=== PATIENT | female | born 1960 | race African-American/Black ===

== ENCOUNTER 2019-03-14 23:12 | Observation (INO) | payer BC ==
[2019-03-15] MEDS ORDERED: Ondansetron ODT 4 MG TAB PO PRN (00:38)
[2019-03-15] MEDS ORDERED: Ondansetron PF 4 MG/2 ML Vial IVP PRN (00:38)
[2019-03-15] MEDS ORDERED: Morphine 2 MG/ML SYRINGE SLOW IVP PRN (01:34)
[2019-03-15] MEDS ORDERED: Morphine 4 MG/ML VIAL SLOW IVP PRN (01:35)
[2019-03-15] MEDS ORDERED: Acetaminophen 325 MG TAB PO PRN (01:35)
[2019-03-15] MEDS: Sodium Chloride 0.9% 1,000 ML IV SCH ×3 (01:44→17:57)
--- NOTE | 2019-03-15 02:07 | HP ---
PRIMARY CARE DOCTOR: Out of town physician. CODE STATUS: Full code. TIME OF EVALUATION: 12:40 a.m. CHIEF COMPLAINT: Abdominal pain. HISTORY OF PRESENT ILLNESS: This is a 58-year-old female patient transferred from [place] with past medical history of previous acute CT, status post stent placement x2, possible cervical cancer, hyperlipidemia, hypertension, came to the hospital after having abdominal pain that was [id number] with no clear triggers, no alleviating factors, located in the lower abdomen radiating to the back. She was also found to have mildly elevated troponin. For that reason was transferred to the hospital. REVIEW OF SYSTEMS: CONSTITUTIONAL: No fever, chills, or generalized weakness. RESPIRATORY: No cough, sputum production, or shortness of breath. CARDIOVASCULAR: The patient has no chest pain or palpitations. GASTROINTESTINAL: No nausea. No vomiting. The patient has abdominal pain mostly in the lower abdomen with radiation to the back. NEWSAGENT: No dizziness, headache or feeling lightheaded. GENITOURINARY: No burning on urination. EXTREMITIES: No leg swelling in the extremities. All other systems were reviewed and negative except for the findings mentioned above. PAST MEDICAL HISTORY: As mentioned in the HPI. PAST SURGICAL HISTORY: Tonsillectomy, tubal ligation. FAMILY HISTORY:Reviewed and non contributory to current presentation. PSYCHIATRIC HISTORY: No previous psych history. SOCIAL HISTORY: The patient has no drug use, quit smoking in 01/2019. KNOWN ALLERGIES: No known drug allergies reported. REPORTED MEDICATIONS: No reported medications. PHYSICAL EXAMINATION: VITAL SIGNS: On presentation, heart rate 72, respiratory rate 16. Pain 5/10. Oxygen saturation was 98% on room air. GENERAL APPEARANCE: The patient is alert, oriented, not in acute distress. HEENT: Eyes, normal. ENT: Moist oral mucosa. Anicteric. No JVD. RESPIRATORY: Bilateral air entry. No rales. No wheezes. Symmetric expansion. CARDIOVASCULAR: Normal rate and regular rhythm. No murmurs. No gallop. No edema. ABDOMEN: Soft, normal bowel sounds. There is abdominal tenderness, mostly in the lower abdomen. MUSCULOSKELETAL: Baseline range of motion and strength. No tenderness. SKIN: Warm, intact. No pallor. No rash. No redness. Peripheral pulses are present. Capillary refill seems to be intact. NEURO: No evidence of any new focal weakness. Baseline speech. Cranial nerves seems to be intact. PSYCH: The patient is in good mood. No anxiety. Optimal judgment. IMAGING STUDIES: EKG was reviewed and the patient has normal sinus rhythm with a rate of 64, MT 140, QRS 78, and QT corrected 447. Chest x-ray, abdomen and pelvis CT was done. The patient has upper normal caliber of the appendix without definite areas of appendicitis, correlate clinically, enlarged bilateral pelvic lymph nodes. attenuation involving the uterine fundus, uterine leiomyoma suspected. Given the presence of pelvic lymphadenopathy, further evaluation with nonemergent pelvic MRI is recommended. Mild compression deformity of T12 is suspected. Chest x-ray was reviewed. The patient has no acute cardiopulmonary process. LABORATORY DATA: Labs were reviewed. The patient has a troponin 0.015, very first one was 0.035. White count 8.2, hemoglobin 11.6, MCV 85, platelet count 223. Coagulation was normal. Chemistry sodium 134, potassium 3.8, chloride 98, carbon dioxide 24, anion gap 16, BUN 13, creatinine 1.62, GFR 40, glucose 136, lactic acid 1.3. LFTs were negative. Serum total protein 8.9, lipase 141. UA was done, was negative. ASSESSMENT AND PLAN: The patient will be placed in the hospital with following medical problems: 1. Abdominal pain of unclear etiology, could be related to possible uterine cancer or cervical cancer. It was reported that the patient had been receiving workup for that reason. We will treat the patient with pain medications. This will need to be followed as outpatient for further workup. 2. Mild normocytic anemia, unclear etiology, could be related to underlying myeloproliferative process. 3. Hyponatremia, sodium 134, this is mild, no need for any acute intervention at this point. We will monitor, we will replace as needed. 4. Acute kidney injury. The patient has a creatinine 1.62 with a GFR of 40. We will give hydration, we will monitor kidney function. If not improving might need Nephrology for evaluation. 5. Hyperlipidemia. Reconcile home medications. Low-cholesterol diet is advised. 6. History of coronary artery disease. The patient has mildly elevated troponin , the second one is normal, we will trend overnight. We will decide on any further workup in the morning. 7. Uncontrolled hypertension. The patient presented with systolic blood pressure 142 by the time of my examination this blood pressure was better, we will monitor, we will treat accordingly. 8. Hyperglycemia. The patient presented with glucose 136, could be secondary to acute physical distress or impaired tolerance to glucose. We will monitor, no need for any acute intervention at this point. 9. Mildly elevated lipase, we will monitor, and treat accordingly. 10. Deep venous thrombosis prophylaxis. Job ID: [id number] MTDD
[2019-03-15 06:06] LABS: #Lymphocytes 1.8 thou/uL (1.20-3.40); #Monocytes 0.8 thou/uL (0.11-0.59); #Neutrophils 5.4 thou/uL (1.40-6.50); %Basophils 0.5 % (0.0-1.0); %Eosinophils 0.4 % (0.0-10.0); %Lymphocytes 22.5 % (21.0-51.0); %Monocytes 9.4 % (0.0-10.0); %Neutrophils 67.2 % (42.0-75.0); Hemoglobin 11.8 g/dL (12.0-16.0); Mean Corpuscular HGB CONC 33.6 g/dL (32.0-36.0); Mean Corpuscular Hemoglobin 29.4 pg (27.0-31.0); Mean Corpuscular Volume 87.3 fL (78.0-98.0); Mean Platelet Volume 7.5 fL (7.4-10.4); Platelet Count 326 thou/uL (130-400); RBC Distribution Width 11.9 % (11.5-14.5)
[2019-03-15 06:26] LABS: Anion Gap 13 mmol/L (10-20); BUN (Urea Nitrogen) 23 mg/dL (9.8-20.1); Calc. Creatinine Clearance 64 mL/min (70-130); Calcium 9.9 mg/dL (7.8-10.44); Carbon Dioxide 28 mmol/L (22-29); Chloride 98 mmol/L (98-107); Estimated GFR-MDRD 47; Glucose 134 mg/dL (70-105); Potassium 4.2 mmol/L (3.5-5.1); Sodium 135 mmol/L (136-145)
[2019-03-15 07:07] LABS: Troponin I Less than 0.010 ng/mL (< 0.028)
[2019-03-15] MEDS ORDERED: ADENOSINE 60 MG/20 ML VIAL ONE (09:49)
[2019-03-15 10:06] LABS: ALT (SGPT) 11 U/L (8-55); AST (SGOT) 17 U/L (5-34); Alkaline Phosphatase 77 U/L (40-150); Bilirubin, Direct 0.2 mg/dL (0.1-0.3); Bilirubin, Total 0.5 mg/dL (0.2-1.2); Lipase 348 U/L (8-78); Protein, Total 8.4 g/dL (6.0-8.3)
[2019-03-15] MEDS ORDERED: Bisacodyl 10 MG SUPP PR PRN (10:07)
--- NOTE | 2019-03-15 10:14 | PDOC.PN ---
- Subjective Encounter Start Date: 03/15/19 Encounter Start Time: 07:17 Subjective: Patient reports having 10/10 pain this morning in lower abdomen and back. -: Has fully settled now. She reports that was the reason she presented to -: [place] [facility] yesterday, transferred here due to indeterminate trop. Patient s/p recent cath with stents x 2. Denies having any recent chest pain. Reports having this lower abdominal/back pain for which she has been undergoing work-up. She is post-menopausal x 3 years but started with vaginal bleeding early this month. Recent pelvic or vaginal US and told her uterus was enlarged and has recent cervical bx and told cervix appeared thickened and erythematous. Follow-up with Dr. aMrc this Friday for results. She states she has been tolerating oral intake without any nausea/vomiting. Denies any sob but did experience some alana yesterday which she states was associated with the level of pain she was experiencing. Otherwise she has no issues with her breathing. No cough or hemoptysis. No urinary symptoms. No bleeding vaginally at present. Reports being very constipated and no full bowel movement for 1 week. Denies any abdominal distention. +flatus. Has tried Mg Citrate for unable to drink it all as it made her feel nauseated. Per RN, patient has mentioned weight loss of 7 lbs in the last week. - Objective Resuscitation Status - Order Detail: 03/15/19 00:38 Resuscitation Status Routine Resuscitation Status: FULL: Full Resuscitation Vital Signs & Weight: Vital Signs (12 hours) Temp Pulse Resp BP BP Pulse Ox 03/15/19 07:30 97.7 F 64 18 116/68 97 03/15/19 05:50 58 L 18 121/63 96 03/15/19 01:18 98 F 58 L 18 133/65 97 Weight Weight 200 lb 4.8 oz I&O: 03/14/19 03/15/19 03/16/19 06:59 06:59 06:59 Output Total 250 Balance -250 Result Diagrams: 03/15/19 05:53 03/15/19 05:53 Phys Exam - Physical Examination Constitutional: NAD HEENT: PERRLA, oral pharynx no lesions Neck: full ROM Respiratory: clear to auscultation bilateral Cardiovascular: RRR Gastrointestinal: soft, no distention, positive bowel sounds Lower abdominal discomfort with palpation, no guarding or rigidity Musculoskeletal: no edema, pulses present Neurological: normal sensation, moves all 4 limbs Psychiatric: normal affect, A&O x 3 Skin: no rash Dx/Plan (1) Abdominal pain Code(s): R10.9 - UNSPECIFIED ABDOMINAL PAIN Status: Acute Plan: Likely associated with underlying uterine enlargement, exacerbated by constipation. She is s/p bx, for follow-up with [employer] on Friday this week. Started on Morphine by ED, had 0/10 this am. Seems to be intermittent. Will try Tramadol instead, as Morphine would cause further issues with constipation. CT imaging showed Leiomyoma and enlarged pelvic lymph nodes, for outpatient MRI. Lipase 141 yesterday, will repeat LFTs and lipase to ensure no further increase. (2) RONI (acute kidney injury) Code(s): N17.9 - ACUTE KIDNEY FAILURE, UNSPECIFIED Status: Acute Plan: Patient with decreased oral intake. Unclear what her baseline kidney function is but she is likely dehydrated. Notable improvement in Cr since admission. Continue IV hdyration. (3) Constipation Code(s): K59.00 - CONSTIPATION, UNSPECIFIED Status: Acute Plan: Likely contributing to abdominal pain. No signs of obstruction on CT Abdomen. No recent n/v and tolerated oral intake at home. Will give dulcolax MT and Miralax PO. Morphine discontinued and Tramadol to be given instead for pain. Walking program and encourage to ambulate in order to help with GI motility. (4) Elevated troponin Code(s): R74.8 - ABNORMAL LEVELS OF OTHER SERUM ENZYMES Status: Resolved Plan: Patient with no complaints of chest pain. Trop indeterminate, subsequent troponins were normal. Has been seen by Dr. Feliz. Outside records requested, given recent cath/stent. Per patient she was told she would undergo a stress test. Remains NPO. (5) CAD (coronary artery disease) Code(s): I25.10 - ATHSCL HEART DISEASE OF [place] CORONARY ARTERY W/O ANG PCTRS Status: Acute - Plan cont current plan of care, plan discussed w/ family, continue antibiotics, out of bed/ambulate, DVT proph w/SCDs Discussed with Dr. Ledesma who agrees with plan as above. ADDENDUM: Discussed with Dr. Feliz who verified he did see her this am. Patient for stress test today. If normal, cleared for d/c from cardiac stand point. Lipase repeated and further increased. Normal pancreas on CT. Add-on amylase requested, if elevated will keep NPO and keep her for continued IVF with repeat labs in AM. If normal, will repeat lipase at 16:00 and if improving, ok to proceed with dc if stress test normal.
[2019-03-15] MEDS ORDERED: Polyethylene Glycol 3350 17 GM Packet PO SCH (10:15)
[2019-03-15] MEDS: traMADol HCl 50 MG TAB PO PRN ×2 (10:35→15:32)
[2019-03-15] MEDS: Enoxaparin Sodium 40 MG/0.4 ML SYRINGE SC SCH (10:36)
[2019-03-15] MEDS ORDERED: Lisinopril/Hydrochlorothiazide 20 mg/12.5 mg Tablet PO SCH (10:45)
[2019-03-15] MEDS ORDERED: Atorvastatin Calcium 20 MG TAB PO SCH (10:45)
[2019-03-15] MEDS ORDERED: Clopidogrel Bisulfate 75 MG TAB PO SCH (10:45)
[2019-03-15] MEDS ORDERED: Amlodipine 10 MG TAB PO SCH (10:45)
--- NOTE | 2019-03-15 13:22 | ULT ---
EXAM: US Gallbladder RUQ CLINICAL HISTORY: Right upper quadrant pain. Elevated lipase and amylase. COMPARISON: None. FINDINGS: Pancreas: Pancreatic duct, though the head of the pancreas is upper normal measuring 0.3 cm. The hea d of the pancreas has a normal echotexture. The remainder the pancreas is obscured Liver:Normal hepatic parenchymal echotexture. No hepatic masses or intrahepatic biliary dilatation. T he contour of the hepatic margin is maintained. Right hepatic lobe measures 18.2 cm. Gallbladder: No sonographic evidence of cholelithiasis, gallbladder wall thickening or pericholecysti c fluid. Albrecht's sign:Negative Bile ducts: Common bile but diameter 0.2 cm Main portal vein is patent. Appropriate directional flow Right kidney: No hydronephrosis Right kidney measuring 9.0 x 4.7 x 5.7 cm in length. IMPRESSION: 1. No sonographic evidence of cholelithiasis or cholecystitis.
--- NOTE | 2019-03-15 14:04 | CON ---
DATE OF CONSULTATION: REASON FOR CONSULTATION: Shortness of breath and history of CAD. HISTORY OF PRESENT ILLNESS: Ms. Maldonado is a 58-year-old woman, who has not been seen or evaluated by anyone in [facility]. 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 She underwent stent placement x2 few months ago. She states she was in [place] visiting family. She developed shortness of breath. No chest pain or pressure noted. No other ameliorating, exacerbating, or precipitating factors present. She was, therefore, subsequently admitted because she had a recent history of stent placement. PAST MEDICAL HISTORY: As above including hypertension, cervical cancer, hyperlipidemia, tonsillectomy, and BTL. SOCIAL HISTORY: No current tobacco or alcohol use. ALLERGIES: NONE. HOME MEDICATIONS: Include: 1. Metoprolol. 2. Lisinopril/hydrochlorothiazide. 3. Plavix. 4. Atorvastatin. 5. Norvasc. 6. Acetaminophen. REVIEW OF SYSTEMS: A 10-point review of systems is reviewed and as above, otherwise negative. PHYSICAL EXAMINATION: VITAL SIGNS: Blood pressure 127/65, pulse 66, and temperature 98. GENERAL: Patient is a pleasant woman, who is in no acute distress. The patient appears their stated age. NEUROLOGIC: The patient is alert and oriented x3 with no focal neurologic deficits. HEENT: Sclerae without icterus. Mouth has moist mucous membranes with normal pallor. NECK: No JVD. Carotid upstroke brisk. No bruits bilaterally. LUNGS: Clear to auscultation with unlabored respirations. BACK: No scoliosis or kyphosis. CARDIAC: Regular rate and rhythm with normal S1 and S2. No S3 or S4 noted. No significant rubs, murmurs, thrills, or gallops noted throughout the precordium. PMI is not displaced. There is no parasternal heave. ABDOMEN: Soft, nontender, nondistended. No peritoneal signs present. No hepatosplenomegaly. No abnormal striae. EXTREMITIES: 2+ femoral and 2+ dorsalis pedis pulses. No cyanosis, clubbing, or edema. SKIN: No gross abnormalities. PERTINENT LABORATORY DATA: Hemoglobin 11.8. Creatinine 1.39. GFR 47. EKG normal sinus rhythm, ST-T wave changes suggesting LVH. IMPRESSION: 1. Shortness of breath. 2. Coronary artery disease. 3. Status post stent placement. RECOMMENDATIONS: 1. Add aspirin to Plavix. 2. Obtain all records. 3. Symptoms felt to be atypical for angina. She states her symptoms were different prior to stent placement. I recommend a noninvasive stress test to assess for any areas of ischemia. If low risk or no ischemia, it would be okay from my standpoint to discharge home with close outpatient followup. Job ID: [id number]
[2019-03-15 16:26] LABS: Lactic Acid 0.8 mmol/L (0.5-2.2)
[2019-03-15 16:30] LABS: ALT (SGPT) 12 U/L (8-55); AST (SGOT) 18 U/L (5-34); Albumin 4.1 g/dL (3.5-5.0); Alkaline Phosphatase 77 U/L (40-150); Bilirubin, Direct 0.2 mg/dL (0.1-0.3); Bilirubin, Total 0.6 mg/dL (0.2-1.2); CK (CPK) 78 U/L (29-168); Lipase 134 U/L (8-78); Protein, Total 8.6 g/dL (6.0-8.3)
[2019-03-15 16:50] LABS: HBCM Index 0.28 S/CO (0-0.79); HBSAg Index 0.65 S/CO (0-0.99); Hep A IgM AB Non-Reactive (NonReactive); Hep A IgM S/CO 0.23 S/CO (0-0.79); Hep B Surf Ag Non-Reactive S/CO (NonReactive); Hep C IgG Ab Non-Reactive (NonReactive); Hep C Index 0.11 S/CO (0-0.79); Hepatitis B Core IgM Abs Non-Reactive (NonReactive)
[2019-03-15] MEDS: Acetaminophen 325 MG TAB PO PRN (19:30)
[2019-03-15] MEDS: Senokot 8.6 MG TAB PO SCH (20:42)
[2019-03-16] MEDS: traMADol HCl 50 MG TAB PO PRN (04:03)
[2019-03-16 05:44] LABS: #Eosinphils 0.1 thou/uL (0.0-0.7); #Lymphocytes 1.5 thou/uL (1.20-3.40); #Monocytes 0.7 thou/uL (0.11-0.59); #Neutrophils 5.7 thou/uL (1.40-6.50); %Basophils 0.5 % (0.0-1.0); %Eosinophils 0.9 % (0.0-10.0); %Lymphocytes 18.2 % (21.0-51.0); %Monocytes 9.2 % (0.0-10.0); %Neutrophils 71.2 % (42.0-75.0); Hemoglobin 10.4 g/dL (12.0-16.0); Mean Corpuscular HGB CONC 33.2 g/dL (32.0-36.0); Mean Corpuscular Volume 87.4 fL (78.0-98.0); Mean Platelet Volume 7.6 fL (7.4-10.4); Platelet Count 310 thou/uL (130-400); White Blood Cell (WBC) Count 8.1 thou/uL (4.8-10.8)
[2019-03-16 05:59] LABS: Anion Gap 16 mmol/L (10-20); BUN (Urea Nitrogen) 20 mg/dL (9.8-20.1); Calc. Creatinine Clearance 89 mL/min (70-130); Calcium 9.4 mg/dL (7.8-10.44); Carbon Dioxide 23 mmol/L (22-29); Chloride 101 mmol/L (98-107); Estimated GFR-MDRD 69; Glucose 107 mg/dL (70-105); Potassium 3.9 mmol/L (3.5-5.1); Sodium 136 mmol/L (136-145)
--- NOTE | 2019-03-16 06:16 | PDOC.CTH ---
Cardiology Progress Note - Objective Vital Signs Temp Pulse Resp BP Pulse Ox 03/16/19 03:35 98.9 F 77 16 134/69 99 03/15/19 20:00 98.9 F 88 12 115/70 100 Weight 200 lb 4.8 oz 03/14/19 03/15/19 03/16/19 06:59 06:59 06:59 Intake Total 2154 Output Total 250 1151 Balance -250 1003 - Physical Examination General/Neuro: alert & oriented x3, NAD Neck: no JVD present Lungs: unlabored respirations Heart: PMI normal, RRR Abdomen: NT/ND, soft Extremities: + femoral B - Labs Result Diagrams: 03/16/19 05:00 03/16/19 05:00 Troponin/CKMB Troponin I Less than 0.010 ng/mL (< 0.028) 03/15/19 05:53 - Assessment/Plan SOB CAD S/p stent placement Awaiting stress results If low risk, ok for DC BB, statin, ASA
[2019-03-16] MEDS: Sodium Chloride 0.9% 1,000 ML IV SCH (06:41)
[2019-03-16] MEDS ORDERED: Lisinopril/Hydrochlorothiazide 20 mg/12.5 mg Tablet PO SCH (09:00)
[2019-03-16] MEDS ORDERED: Aspirin 81 mg Enteric Coated Tablet PO SCH (09:00)
[2019-03-16] MEDS ORDERED: Atorvastatin Calcium 20 MG TAB PO SCH (09:00)
[2019-03-16] MEDS ORDERED: Amlodipine 10 MG TAB PO SCH (09:00)
[2019-03-16] MEDS ORDERED: Polyethylene Glycol 3350 17 GM Packet PO SCH (09:00)
[2019-03-16] MEDS ORDERED: Non-Formulary Item 1 EACH (Linaclotide [Linzess] 1 CAP) PO SCH (09:00)
[2019-03-16] MEDS ORDERED: LINACLOTIDE PO SCH (09:00)
[2019-03-16] MEDS ORDERED: Clopidogrel Bisulfate 75 MG TAB PO SCH (09:00)
[2019-03-16] MEDS: Senokot 8.6 MG TAB PO SCH (10:07)
--- NOTE | 2019-03-16 10:07 | NM ---
CARDIAC SPECT: HISTORY: A 58-year-old female with indeterminate troponin, coronary artery disease, and chest pain. TECHNIQUE: A myocardial perfusion scan was performed using the single isotope two-day protocol with 32 millicuri es technetium 99m sestamibi, injected intravenously, for both stress and rest images. Pharmacologic stress with adenosine was monitored and interpreted by Dr. Feliz. FINDINGS: There is a fixed defect in the distal anteroseptal wall, with normal wall motion and contractility, c onsistent with breast attenuation artifact. No reversible defects are seen. GATED SPECT LVEF: 70%. WALL MOTION EXAM: Normal. IMPRESSION: No evidence of reversible ischemia. POS: JUANJOSE
[2019-03-16] MEDS: Enoxaparin Sodium 40 MG/0.4 ML SYRINGE SC SCH ×2 (10:08→10:12)
[2019-03-16] MEDS: Acetaminophen 325 MG TAB PO PRN ×2 (10:08→15:55)
--- NOTE | 2019-03-16 13:26 | CT ---
CT THORACIC SPINE WITHOUT CONTRAST: HISTORY: Severe pain. COMPARISON: CT abdomen and pelvis from 03/14/2019. FINDINGS: There is a total of 12 rib bearing vertebrae and a vertebra which will be labeled as T13. It has an anterior-superior endplate fracture. A C7 cervical rib is present. The anterior-superior endplate fracture spares the posterior vertebral body. There is depression of the superior endplate of 10% to 15%. There is only 5% anterior height loss. No other fracture of th e thoracic spine is appreciated. No posterior element involvement. The transverse processes are intact. The visualized lungs are clear. The posterior mediastinal soft tissues are unremarkable. IMPRESSION: For the basis of numbering on this examination, there is a fracture of what appears to be the 13th th oracic vertebra. This is an acute fracture. It involves the superior endplate and the anterior-supe rior vertebral body. No posterior extension. No retropulsion. No other fracture of the thoracic sp ine. POS: CET
--- NOTE | 2019-03-16 13:28 | CT ---
CT LUMBAR SPINE WITHOUT CONTRAST: HISTORY: Cervical cancer. Back pain. COMPARISON: CT abdomen and pelvis from 03/14/2019. FINDINGS: For the bases of numbering on this examination, there is a T13 thoracic spine anterior-superior endpl ate fracture with superior depression. There is 5% anterior height loss and 10% to 15% superior endp late height loss. Circumferential disk bulge at L5-S1 with moderate bilateral neural foraminal narro wing. There is also circumferential disk bulge at L4-L5. No suspicious osteolytic or osteoblastic lesions. Left pelvic adenopathy is present. The appendix is visualized and is normal. IMPRESSION: 1. Relatively acute anterior-superior endplate fracture of T13. 2. Abnormal internal iliac adenopathy, suggestive of malignancy. POS: CET
[2019-03-16 15:52] VITALS: BP 135/64; TEMP 98.3
--- NOTE | 2019-03-16 16:25 | CON ---
DATE OF CONSULTATION: This serves as an imaging review note only. I did not see the patient in person. I am reviewing a CT scan of the lumbar spine and a CT scan of the thoracic spine. The patient appears to have 13 thoracic vertebrae and has a very mild superior endplate compression deformity at T13 indicating maybe a 5% to 10% height loss anteriorly. It is reported to me that she has significant back pain, and for this purpose, I recommend a TLSO brace. This was discussed with the Case Management, who concurred and communicated with our colleagues in the hospitalist service. Job ID: [id number]
--- NOTE | 2019-03-17 11:47 | DIS ---
DATE OF ADMISSION: 03/15/2019 DATE OF DISCHARGE: 03/16/2019 CONSULTING PHYSICIANS: 1. Dr. Feliz, Cardiology. 2. Clifton Damian PA-C, Neurology. DISCHARGE DIAGNOSES: 1. Cervical squamous cell carcinoma, newly diagnosed. 2. Compression deformity at T13, discharged in a TLSO brace. 3. Coronary artery disease, previous stent placement. 4. Abdominal pain. HOSPITAL COURSE: Ms. Maldonado is a 58-year-old woman who presented to [facility] with complaints of abdominal pain that has been ongoing for which she has had investigations with her hybrid corn breeder due to associated postmenopausal vaginal bleeding. She is believed to have cervical cancer due to reddened appearance of her cervix and intermittent bleeding. She had a biopsy done earlier in the week and her hospital stay was able to confirm that she was in fact found to have squamous cell carcinoma, high-grade. She has an appointment with her hybrid corn breeder on 03/17/2019, for further workup and recommendations. The patient's abdominal pain did continue intermittently throughout her stay, but was no longer as severe. She did however report having right-sided back pain radiating around down to her leg. This prompted imaging of T-spine, and she was indeed found to have a compression fracture of the 13th thoracic vertebrae, which was felt to be acute involving the superior endplate and the anterior superior vertebral body. There was no posterior extension, no retropulsion, and no other fractures of thoracic spine. Neurosurgery was consulted, and they reviewed images. It was recommended to place her in a TLSO brace with follow up as an outpatient. No surgical intervention indicated. On initial laboratory studies done, the patient was noted to have RONI with a BUN of 23 and a creatinine of 1.39, GFR of 47. She received IV fluids and these all improved. She had troponins trended due to complaints of the abdominal pain to rule out any cardiac underlying problem. Initial troponin was indeterminate at 0.035; however, subsequent second and third troponins were negative. She was seen by Cardiology and underwent a stress test, which showed no evidence of reversible ischemia and an EF was 70%. She was cleared from Cardiac standpoint for discharge home with follow up as an outpatient. Advised to discontinue on beta blanche, statin, and aspirin. The patient with known history of stent in the past. On initial lab tests, she also had elevated amylase and lipase with a lipase of 348; however, the following day, this improved to 134. She continued to tolerate a heart healthy diet and had no epigastric discomfort, nausea, or vomiting throughout her stay. Underwent an abdominal ultrasound that showed no abnormalities. REVIEW OF SYSTEMS: On the day of discharge, the patient continues to have right-sided back pain that seems to have felt somewhat better once the brace was placed prior to discharge. She denies having any chest pain, palpitations, or shortness of breath. She does have abdominal discomfort that is generalized. No nausea or vomiting. No headaches or dizziness. No urinary complaints. No constipation, melena, or hematochezia. All other review of systems are negative. PHYSICAL EXAMINATION: GENERAL: The patient appears well developed, well nourished, is in no acute distress. VITAL SIGNS: Temperature 98.3, pulse 79, respirations 16, O2 saturation 99% on room air, and blood pressure 135/64. HEENT: Normocephalic and atraumatic. Pupils are equal, round, and reactive to light. Sclerae without icterus. Oropharynx is clear. NECK: Supple. No cervical spine tenderness. No stiffness or rigidity. CARDIAC: Regular rhythm. LUNGS: Clear to auscultation bilaterally. ABDOMEN: Soft, obese. Mild general discomfort in the lower abdomen, but nontender. No guarding or rigidity. No renal angle tenderness. She does have some mild discomfort in the mid lower spine. EXTREMITIES: No edema or swelling. NEUROLOGIC: Alert and oriented x3. No neuro deficits. SKIN: Without rash or jaundice. LABORATORY DATA: White blood count 8, hemoglobin 10.4, hematocrit 31.4, and platelets 310. Sodium 136, potassium 3.9, chloride 101, carbon dioxide 23, BUN 20, creatinine 1, GFR 69, glucose 107, and calcium 9.4. IMAGING DATA: As mentioned above in hospital course. CONDITION: Stable at discharge. ACTIVITY: As tolerated, advised not to do any heavy lifting or strenuous activity. DIET: Heart healthy. DISCHARGE MEDICATIONS: The patient advised to resume all her home medications. FOLLOWUP: She will follow up with her primary care physician within 1 week. She will also follow up with Dr. Martinez as an outpatient. She will follow up with her [employer] sales and lending team member as scheduled. She will see her hybrid corn breeder tomorrow as scheduled for further recommendations regarding new diagnosis of cervical cancer. DISPOSITION: The patient medically cleared for discharge to home on . The patient's case was discussed with Dr. Ledesma, who agrees with plan of care as described above. Job ID: [id number]
== END 2019-03-16 18:12 | disposition home or self-care (01) ==
LOC: ERS 23:12 → 2SW 03-15 00:08
PROVIDERS: ADMIT Hospitalist; ATTEND Hospitalist
DX: R10.30 Lower abdominal pain, unspecified (principal); S22.008A Other fracture of unspecified thoracic vertebra, initial encounter for closed fracture; C53.9 Malignant neoplasm of cervix uteri, unspecified; I25.2 Old myocardial infarction; E78.5 Hyperlipidemia, unspecified; I10 Essential (primary) hypertension; D64.9 Anemia, unspecified; E87.1 Hypo-osmolality and hyponatremia; N17.9 Acute kidney failure, unspecified; I25.10 Atherosclerotic heart disease of native coronary artery without angina pectoris; R73.9 Hyperglycemia, unspecified; M54.9 Dorsalgia, unspecified; K59.00 Constipation, unspecified; R74.8 Abnormal levels of other serum enzymes; R06.02 Shortness of breath; Z87.891 Personal history of nicotine dependence; Z79.02 Long term (current) use of antithrombotics/antiplatelets; Z79.899 Other long term (current) drug therapy; Z95.5 Presence of coronary angioplasty implant and graft
CPT/HCPCS: 36415; 72128; 72131; 76705; 78452; 80048; 80074; 80076; 82150; 82550; 83605; 83690; 85025; 93017; 96361; 96372; 96374; 96376; 99285; A9500; G0378; J0153; J1650; J2270